=== PATIENT | male | born 1955 | race African-American/Black ===

== ENCOUNTER 2019-11-19 23:20 | Emergency (ER) | payer BC ==
[~2019-11-19] VITALS: Ht 175.3 cm; Wt 77.1 kg
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
[2019-11-19 23:30] VITALS: BP 158/95
--- NOTE | 2019-11-19 23:30 | NUR ---
ED Nurse Note: ERMD at bedside
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
[2019-11-19] MEDS ORDERED: HYDROcodone/Acetamin 5/325 tab ORAL ONE (23:45)
--- NOTE | 2019-11-19 23:50 | NUR ---
ED Nurse Note: Pain meds given PO. Patient to CT scan per bed
--- NOTE | 2019-11-20 00:24 | NUR ---
ED Nurse Note: Patient back from CT scan
--- NOTE | 2019-11-20 00:26 | Diagnostic Imaging Report ---
ADDENDUM - Added by Terell Oquendo MD on 11/20/2019 12:38 AM (-07:00) The hemangioma is in the L2 vertebral body and the posterior spondylitic ridging is at T12-L1 with associated, mild spinal canal stenosis. EXAM: CT Thoracic Spine Without Intravenous Contrast CLINICAL HISTORY: TRAUMA TECHNIQUE: Axial computed tomography images of the thoracic spine without intravenous contrast. CTDI is 8.6 mGy and DLP is 408 mGy-cm. One or more of the following dose reduction techniques were used: automated exposure control, adjustment of the mA and/or kV according to patient size, use of iterative reconstruction technique. COMPARISON: No relevant prior studies available. FINDINGS: The vertebral body heights are maintained. The thoracic kyphosis is preserved. There is no spondylolisthesis. The posterior elements are maintained, without evidence of acute fracture. The pedicles are intact. Mild multilevel degenerative endplate changes with intervertebral disc space spurring. No high-grade spinal canal stenosis. Posterior spondylotic ridging at L1-2 with associated mild spinal canal stenosis. Spinal cord stimulator lead identified in the spinal canal. Hemangioma in the L3 vertebral body inferior endplate. Dependent atelectasis within the bilateral lungs. IMPRESSION: No thoracic spine fracture.
--- NOTE | 2019-11-20 00:39 | Diagnostic Imaging Report ---
EXAM: CT Lumbar Spine Without Intravenous Contrast CLINICAL HISTORY: TRAUMA TECHNIQUE: Axial computed tomography images of the lumbar spine without intravenous contrast. CTDI is 8.2 mGy and DLP is 332 mGy-cm. One or more of the following dose reduction techniques were used: automated exposure control, adjustment of the mA and/or kV according to patient size, use of iterative reconstruction technique. COMPARISON: No relevant prior studies available. FINDINGS: The vertebral body heights are maintained. The lumbar lordosis is preserved. There is no spondylolisthesis. The posterior elements are maintained, without evidence of acute fracture. The pedicles are intact. Multilevel facet arthropathy. Multilevel degenerative endplate changes with mild disc space narrowing at L2-3. Posterior spondylitic ridging/disc-osteophyte complex at T12-L1 which contributes to mild spinal canal stenosis. Moderate bilateral foraminal stenosis at L5-S1. The visualized intra-abdominal contents are grossly unremarkable. Hemangioma in the inferior endplate of L2. Spinal cord simulator identified in the spinal canal. IMPRESSION: No lumbar spine fracture.
--- NOTE | 2019-11-20 00:45 | NUR ---
ED Nurse Note: Patient is ready for discharge and MARCELA explained to the patient that scan is normal. Patient is acting weird and was ignoring and not answering ERMD's question
--- NOTE | 2019-11-20 00:50 | NUR ---
ED Nurse Note: Patient refused to leave and became uncooperative. Discharge paper refused to sign by the patient.
[2019-11-20] MEDS ORDERED: IBUPROFEN600 M1 ORAL (00:55)
--- NOTE | 2019-11-20 01:10 | NUR ---
ED Nurse Note: Asked security for assistance for pts' discharge as pt was refusing to leave. Security politely asked patient to leave but was refusing and acting not to hear anything. Patient escorted to the wheelchair safely then into the waiting room.
--- NOTE | 2019-11-20 01:10 | NUR ---
ED Nurse Note: Patient was complaining of back pain and unable to stand prior to discharge, but patient was seen standing and walking in the waiting room of ED without any problems and complaints
--- NOTE | 2019-11-20 01:11 | NUR ---
ER DISCHARGE NOTE: Patient is cleared to be discharged per ERMD, pt is aox4, on room air, with stable vital signs. pt refused to sign dc instructions, prescription given. pt id band removed . pt is escorted to the waiting room via wheelchair with security safely. pt took all belongings.
[2019-11-20 01:30] VITALS: BP 127/86
== END 2019-11-20 01:10 | disposition home or self-care (01) ==
LOC: EDBD 23:20 → EDSEX 23:20 → EMR 23:35 → EDSEX 23:35 → EMR 11-20 01:10
DX: M54.9 Dorsalgia, unspecified (principal); V03.90XA Pedestrian on foot injured in collision with car, pick-up truck or van, unspecified whether traffic or nontraffic accident, initial encounter; Y92.410 Unspecified street and highway as the place of occurrence of the external cause
CPT/HCPCS: 72128; 72131; 99284